=== PATIENT | male | born 1965 | race Caucasian/White ===

== ENCOUNTER 2023-12-30 09:46 | Day surgery (SDC) | payer OTHER, SELFPAY ==
[2023-12-28 14:31] VITALS: BMI 24.4
[2023-12-30 10:11] VITALS: BP 136/83; PULSE 73; RESP 18; TEMP 36.5; O2SAT 97
[2023-12-30] MEDS: LACTATED RINGERS 1000ML 1,000 ML 25 ML IV (10:22)
--- NOTE | 2023-12-30 10:25 | P.PNANES_ITS ---
[facility] Disclaimer: The information contained in this section may have been updated after the patient was seen, as this information can be updated by other users. Medical History A-fib Prostate cancer No significant past medical history Surgical History History of appendectomy H/O prostatectomy History of hip surgery Family History Father Bone cancer Other Lymphoma Throat cancer Social History Smoking Status: Never smoker alcohol intake: never substance use type: denies use current occupational status: employed Travel in the last 8 weeks: None caffeine: Yes [facility] Anesthesia Checklist Patient Identification Patient Identification: Arm Band and Verbal (Name & ) Structural Data Admitted From: Home Planned Operative Procedure/s: Colonoscopy Consent for Planned Operative Procedure(s) Verified: Yes Verified Documents: Surgical Consent and History and Physical NPO Status Verified Time NPO: 00:00 Additional verifications Anesthesia Reactions: No Airway Assessment Mallampati Score:: Class I C-Spine Mobility Assessed: Yes TMJ Mobility Assessed: Yes Dentition: Good Dentition Neurological Assessment Level of Consciousness: Awake Hx Seizures: No Numbness or tingling in extremities: No Anesthesia Plan Anesthesia Risk discussed: Yes Anesthesia Plan: Verified ASA Class: I Anesthesia Type: MAC
--- NOTE | 2023-12-30 11:14 | EXP.HP ---
History of Present Illness *Admission Date: 12/30/23 *Reason for visit:: Surveillance *History of present illness: Mr. Damon is a 58-year-old gentleman who is here for follow-up surveillance colonoscopy secondary to a personal history of adenomatous colon polyps. The examination is deemed medically necessary for colonoscopy. The patient has been seen, interviewed and examined prior to the procedure by both myself and the anesthesia provider. [facility] Disclaimer: The information contained in this section may have been updated after the patient was seen, as this information can be updated by other users. Medical History A-fib Prostate cancer No significant past medical history Surgical History History of appendectomy H/O prostatectomy History of hip surgery Family History Father Bone cancer Other Lymphoma Throat cancer Social History (Updated 12/30/23 @ 10:26 by Arianne Ruano CRNA) Smoking Status: Never smoker alcohol intake: never substance use type: denies use current occupational status: employed Travel in the last 8 weeks: None caffeine: Yes Review of Systems Review of Systems Review of systems (narrative): Negative *Cardiovascular Comments: Negative *Gastrointestinal Comments: Negative *Genitourinary Comments: Negative *Musculoskeletal Comments: Negative *Neurologic Comments: Negative Meds Home Medications and Allergies Home Medications ?Medication ?Instructions ?Recorded ?Confirmed ?Type No Known Home Medications 12/30/23 12/30/23 History New Prescriptions to Start Prescriptions: Allergies Allergy/AdvReac Type Severity Reaction Status Date / Time aspirin Allergy Hives Verified 12/30/23 10:09 iodine Allergy Hives Verified 12/30/23 10:10 shellfish derived Allergy Hives Verified 12/30/23 10:10 Exam Data for Last 24 hours Vital signs and Labs for Last 24 Hours: Temp Pulse Resp BP Pulse Ox O2 Del Method 97.7 F 73 18 136/83 97 Room Air 12/30/23 10:11 12/30/23 10:11 12/30/23 10:11 12/30/23 10:11 12/30/23 10:11 12/30/23 10:11 I & O for Last 24 hours: Intake & Output 12/27/23 12/28/23 12/29/23 12/30/23 23:59 23:59 23:59 23:59 Weight 185 lb *Routine HEENT Exam Head: Present normocephalic Eye: Present EOMI and PERRL ENT: Present mucous membranes moist *Routine Neck Exam Neck: Present supple *Routine Respiratory Exam Respiratory: Present CTA bilaterally *Routine Cardiovascular Exam Cardiovascular: Present RRR *Routine Abdominal Exam Abdominal: Present soft and normoactive bowel sounds; Absent tenderness *Routine Rectal Exam Rectal:: deferred *Routine Genitalia Exam Genitalia:: deferred *Routine Extremities Exam Extremities: Absent cyanosis, clubbing or edema *Routine Skin Exam Skin: Present warm; Absent rash *Routine Neurological Exam Neurological: Present alert and oriented X3 Assessment and Plan *Assessment and plan (1) Personal history of adenomatous and serrated colon polyps: Status: Acute Category: Medical Code(s): Z86.0101 - Personal history of adenomatous and serrated colon polyps Plan A/P: 1. Personal history of adenomatous colon polyps is the preprocedural diagnosis. The patient will be anesthetized/sedated using MAC sedation. The patient has been seen and examined. Cardiac and lung assessment prior to the examination is stable. Proceed with planned colonoscopy
[2023-12-30 11:21] VITALS: O2SAT 100
--- NOTE | 2023-12-30 11:23 | P.PCN_ITS ---
[facility] Procedure Note Date: 12/30/23 Time: 11:41 Procedure Note:: Colonoscopy Procedure Report: Colonoscopy with cold snare polypectomy Endoscopist: Nelson Arenas II, MD Referring physician: Westley Abrams MD ([id number], [id number], [place] [address]) Date of Procedure: December 30, 2023 Equipment: Olympus 190 variable stiffness pediatric colonoscope Sedation: MAC sedation Indication: Mr. Damon is a 58-year-old gentleman who is here for follow-up surveillance colonoscopy secondary to a personal history of adenomatous polyps. His last colonoscopy was 5 years ago and he had an adenomatous polyp at that time. He reports no abdominal pain, weight loss, change in his bowel habits or rectal bleeding. He does have a history of prostate cancer with prostatectomy and XRT. The patient recently had cystoscopy by Jerald Fajardo MD. Procedure: Prior to the procedure, a history and physical exam was performed, and patient's medications and allergies were reviewed. The risks, benefits and alternatives of the sedation and procedure were discussed with the patient. All questions were answered and informed consent was obtained. The patient was brought to the procedure room. Patient identification and proposed procedure were verified by the physician and the nurse. The patient was placed in a left lateral decubitus position and the scope was passed under direct vision. Throughout the procedure, the patient's blood pressure, pulse, and oxygen saturations were monitored continuously. The colonoscopy was accomplished without difficulty. The patient tolerated the procedure well. Findings: On digital rectal examination there was normal rectal tone. There were no external hemorrhoids. The colonoscope was introduced through the anal canal to the rectum and advanced to the cecum. The ileocecal valve and appendiceal orifice were identified. The scope was advanced a short distance into the ileum which appeared grossly normal. The scope was then withdrawn into the colon. There were 2 diminutive polyps (ascending x 1 (3 mm) and rectum x 1 (4 mm)) which were both removed via cold snare polypectomy. The cecum, ascending, transverse, descending, sigmoid and rectum were grossly normal. There were no mucosal abnormalities identified. Upon retroflexion within the rectum there were grade 2 internal hemorrhoids.There was also evidence of mild telangiectasias and very mild radiation proctitis. The preparation was excellent throughout with Simms Preparation Score of 9. The cecal time was 12 minutes. Impression: 1. Diminutive colonic polyps x 2 2. Grade 2 internal hemorrhoids 3. Mild radiation proctitis Plan: I will follow-up the polyp histology and recommend repeat surveillance colonoscopy again in 5 years. I would continue psyllium/Konsyl bulking fiber supplementation on a daily maintenance basis.
[2023-12-30 11:47] VITALS: BP 105/63; PULSE 60; RESP 16; TEMP 36.9; O2SAT 99
[2023-12-30 11:57] VITALS: BP 106/61; PULSE 61; RESP 16; O2SAT 98
[2023-12-30 12:07] VITALS: BP 115/77; PULSE 68; RESP 15; O2SAT 97
[2023-12-30 12:17] VITALS: BP 117/88; PULSE 70; RESP 17; TEMP 36.8; O2SAT 99
== END 2023-12-30 12:20 | disposition home or self-care (01) ==
PROVIDERS: PCP Internal Medicine; Visit Provider Internal Medicine Gastroenterology
PROC: (CPT 45385; principal; 2023-12-30 11:30)
DX: K63.5 Polyp of colon (principal); K64.1 Second degree hemorrhoids; K62.7 Radiation proctitis; Z86.0101 Personal history of adenomatous and serrated colon polyps
CPT/HCPCS: 45385; J7120